=== PATIENT | male | born 1965 | race Caucasian/White ===

== ENCOUNTER → 2023-11-12 06:42 | Outpatient (REF) | payer BC, SELFPAY | LOC: RAD 06:42 | PROVIDERS: ATTENDING PHYSICIAN Nurse Practitioner Primary Care; FAMILY PHYSICIAN Surgery Vascular Surgery | DX: I72.3 Aneurysm of iliac artery (principal) | CPT/HCPCS: 76770 ==

== ENCOUNTER → 2023-11-14 07:49 | Outpatient (REF) | payer SELFPAY | LOC: HWRAD 07:49 | PROVIDERS: ATTENDING PHYSICIAN Nurse Practitioner Primary Care | DX: I51.7 Cardiomegaly (principal); R03.0 Elevated blood-pressure reading, without diagnosis of hypertension | CPT/HCPCS: 75571 ==

== ENCOUNTER → 2023-11-27 10:02 | Outpatient (REF) | payer BC, SELFPAY | LOC: HWRAD 10:02 | PROVIDERS: ATTENDING PHYSICIAN Nurse Practitioner Primary Care | DX: R03.0 Elevated blood-pressure reading, without diagnosis of hypertension (principal); I51.7 Cardiomegaly; R35.0 Frequency of micturition; R33.9 Retention of urine, unspecified; Z80.52 Family history of malignant neoplasm of bladder | CPT/HCPCS: 76770 ==

== ENCOUNTER → 2024-11-18 07:33 | Outpatient (REF) | payer BC, SELFPAY | LOC: DHVS 07:33 | PROVIDERS: ATTENDING PHYSICIAN Surgery Vascular Surgery | DX: I72.3 Aneurysm of iliac artery (principal) | CPT/HCPCS: 76770 ==

== ENCOUNTER → 2025-02-11 14:52 | Outpatient (REF) | payer BC, SELFPAY | LOC: HWRAD 14:52 | PROVIDERS: ATTENDING PHYSICIAN Specialist; FAMILY PHYSICIAN Nurse Practitioner Primary Care | DX: R31.0 Gross hematuria (principal) | CPT/HCPCS: 76770 ==

== ENCOUNTER 2025-06-17 06:20 | Day surgery (SDC) | payer BC, SELFPAY | END 2025-06-17 10:07 | disposition home or self-care (01) | LOC: GI 06:20 | PROVIDERS: ATTENDING PHYSICIAN Surgery | DX: Z12.11 Encounter for screening for malignant neoplasm of colon (principal); D12.0 Benign neoplasm of cecum; D12.2 Benign neoplasm of ascending colon; K63.5 Polyp of colon; K57.30 Diverticulosis of large intestine without perforation or abscess without bleeding; K64.9 Unspecified hemorrhoids | CPT/HCPCS: 45385; 45380; 88305 ==